=== PATIENT | female | born 1970 | race Caucasian/White ===

== ENCOUNTER 2016-11-11 20:28 | Emergency (ER) | payer BC ==
[2016-11-11 20:45] VITALS: BP 99/52; PULSE 90; TEMP 98.5; BMI 21.4
--- NOTE | 2016-11-11 22:01 | PDOC ---
History of Present Illness - General Chief Complaint: Shortness of Breath Stated Complaint: SHORTNESS OF BREATH Time Seen by Provider: 11/11/16 21:44 History Source: Patient Exam Limitations: No Limitations - History of Present Illness Initial Comments: 11/15/16 14:17 46 yr female with cough and congestion. No fever no chills. no chest pain. Past History - Past Medical History Allergies/Adverse Reactions: Allergies Allergy/AdvReac Type Severity Reaction Status Date / Time Penicillins Allergy Intermediate Hives Verified 11/11/16 20:43 Home Medications: Ambulatory Orders Albuterol 0.083% Nebulizer Catarina [Ventolin 0.083% Nebulizer Soln -] 1 neb NEB Q4H #30 vial 11/11/16 Azithromycin [Zithromax 250mg Tablets -] 250 mg PO DAILY #3 tablet 11/11/16 GI Disorders: Yes (spastic collitis) Suicide Attempt (Hx): No - Surgical History Cholecystectomy: Yes Orthopedic Surgery: Yes (ARTHROSCOPY LEFT) - Psycho/Social/Smoking Cessation Hx Anxiety: No Suicidal Ideation: No Smoking History: Former smoker Have you smoked in the past 12 months: Yes Number of Cigarettes Smoked Daily: 20 Information on smoking cessation initiated: No 'Breaking Loose' booklet given: 07/16/14 Hx Alcohol Use: Yes (RARE) Drug/Substance Use Hx: No Substance Use Type: Alcohol Review of Systems - Review of Systems Able to Perform ROS?: Yes Is the patient limited Libyan proficient: No Constitutional: No: Symptoms Reported HEENTM: No: Symptoms Reported Respiratory: Yes: Cough *Physical Exam - Vital Signs Last Vital Signs Temp Pulse Resp BP Pulse Ox 98.5 F 90 18 99/52 100 11/11/16 20:44 11/11/16 20:44 11/11/16 20:44 11/11/16 20:44 11/11/16 20:44 - Physical Exam General Appearance: Yes: Nourished, Appropriately Dressed HEENT: positive: EOMI, BARTOLO, Normal ENT Inspection, TMs Normal, Pharynx Normal Neck: positive: Supple. negative: Tender, Lymphadenopathy (R), Lymphadenopathy (L) Respiratory/Chest: positive: Lungs Clear, Normal Breath Sounds, Rhonchi. negative: Chest Tender Cardiovascular: positive: Regular Rhythm, Regular Rate Gastrointestinal/Abdominal: positive: Normal Bowel Sounds, Soft Musculoskeletal: positive: Normal Inspection Extremity: positive: Normal Capillary Refill, Normal Inspection, Normal Range of Motion Integumentary: positive: Normal Color, Dry, Warm Neurologic: positive: Fully Oriented, Normal Mood/Affect, Normal Response, Motor Strength 02/25 ED Treatment Course - ADDITIONAL ORDERS Additional order review: Laboratory Results 11/11/16 21:07 Urine HCG, Qual Negative Medical Decision Making - Medical Decision Making 11/15/16 14:19 cc: cough afebrile no chest pain scattered rhonchi pt requesting Zpack states that is what helps her bronchitis will give zpack for bronchitis pt satisfied with care all questions asked and answered before discharge. 11/15/16 14:20 *DC/Admit/Observation/Transfer Diagnosis at time of Disposition: Bronchitis - Discharge Dispostion Disposition: HOME Condition at time of disposition: Good - Prescriptions Prescriptions: Albuterol 0.083% Nebulizer Catarina [Ventolin 0.083% Nebulizer Soln -] 1 neb NEB Q4H #30 vial Azithromycin [Zithromax 250mg Tablets -] 250 mg PO DAILY #3 tablet - Patient Instructions Additional Instructions: follow with your doctor drink pleanty of water return if any worsening symptoms next dose of azithromcyin tomorrow
== END 2016-11-11 22:03 | disposition home or self-care (01) ==
LOC: JERFT 20:28
DX: J40 Bronchitis, not specified as acute or chronic (principal)
CPT/HCPCS: 84703; 99281-25

== ENCOUNTER 2017-05-31 23:18 | Emergency (ER) | payer BC ==
--- NOTE | 2017-05-31 23:22 | PDOC ---
History of Present Illness - General Chief Complaint: Injury Stated Complaint: INJURY TO RIGHT ANKLE Time Seen by Provider: 05/31/17 23:21 - History of Present Illness Initial Comments: 05/31/17 23:24 This 47-year-old woman without active medical problems presents with injury to her right ankle: While she was playing softball this evening, line drive hit her right ankle (lateral malleolus area). Patient did not fall or turn the ankle after injury. Although she had significant pain, she continued to play the game. She is able to ambulate with pain afterwards. No previous history of fracture of the right lower leg. No other injury sustained. Past medical history Chronic bronchitis Spastic colitis s/p cholecystectomy Medications as noted below ALLERGY: Penicillin Past History - Past Medical History Allergies/Adverse Reactions: Allergies Allergy/AdvReac Type Severity Reaction Status Date / Time Penicillins Allergy Intermediate Hives Verified 05/31/17 23:19 Home Medications: Ambulatory Orders L.acidoph,Paracasei, B.lactis [Probiotic] 1 each PO DAILY 05/31/17 NK [No Known Home Medication] 05/31/17 GI Disorders: Yes (spastic collitis) Suicide Attempt (Hx): No - Surgical History Cholecystectomy: Yes Orthopedic Surgery: Yes (ARTHROSCOPY LEFT) - Psycho/Social/Smoking Cessation Hx Anxiety: No Suicidal Ideation: No Smoking History: Former smoker Have you smoked in the past 12 months: Yes Number of Cigarettes Smoked Daily: 20 'Breaking Loose' booklet given: 07/16/14 Hx Alcohol Use: Yes (RARE) Drug/Substance Use Hx: No Substance Use Type: Alcohol Review of Systems - Review of Systems Able to Perform ROS?: Yes Comments:: 12 point review of systems is negative except for what is noted in the history of present illness *Physical Exam - Physical Exam Comments: GENERAL: HEAD: Normal with no signs of trauma. EYES: PERRLA, EOMI, sclera anicteric, conjunctiva clear. ENT: Ears normal, nares patent, oropharynx clear without exudates. Dry mucous membranes. NECK: Normal range of motion, supple without lymphadenopathy, JVD, or masses. LUNGS: Breath sounds equal, clear to auscultation bilaterally. No wheezes, and no crackles. HEART:Regular rate and rhythm, normal S1 and S2 without murmur, rub or gallop. ABDOMEN:.normal bowel sounds No guarding,tenderness or rebound.No masses No distention. EXTREMITIES: Right lower extremitymoderate edema/mild tenderness/no deformity or ecchymosis lateral malleolus ankle No foot/lower leg/knee tenderness or edema Remainder of the extremity exam is normal NEUROLOGICAL: Cranial nerves II through XII grossly intact. Normal speech. No focal neurological deficits. MUSCULOSKELETAL: Back non-tender to palpation, no CVA tenderness SKIN: Warm, Dry, normal turgor, no rashes or lesions noted. Progress Note - Progress Note Progress Note: Patient is adamant that she is not currently sexually active and therefore cannot be . PGU deferred Right ankle x-ray performed: No clear evidence of fracture or dislocation on my interpretation. Lance wrap applied to right ankle. Patient will be discharged with instructions to ice and elevate the ankle as much as possible for next 48 hours. 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 If she continues to have pain/swelling in the ankle, she should follow-up with Dr. Walls who is her orthopedist. *DC/Admit/Observation/Transfer Diagnosis at time of Disposition: Ankle contusion Qualifiers: Encounter type: initial encounter Laterality: right Qualified Code(s): S90.01XA - Contusion of right ankle, initial encounter - Discharge Dispostion Disposition: HOME Condition at time of disposition: Stable - Referrals Referrals: Shahid Walls MD [Staff Physician] - 1 week - Patient Instructions Printed Discharge Instructions: Smoking Cessation, DI for Contusion Additional Instructions: Elevate/ice to ankle as much as possible for the next 48 hours Lance wrap during day for the next week Ibuprofen/naproxen/acetaminophen as needed for pain Follow-up with Dr. Walls if you have continued pain/swelling for more than 5-7 days No work tomorrow night or night - Post Discharge Activity Work/School Note: Back to Work
[2017-05-31 23:28] VITALS: BP 133/100; PULSE 70; TEMP 98.9; BMI 20.6
== END 2017-06-01 00:02 | disposition home or self-care (01) ==
LOC: FER 23:18
DX: S90.01XA Contusion of right ankle, initial encounter (principal); W21.03XA Struck by baseball, initial encounter; Y93.64 Activity, baseball; Y92.320 Baseball field as the place of occurrence of the external cause; Z87.891 Personal history of nicotine dependence; K58.9 Irritable bowel syndrome, unspecified
CPT/HCPCS: 73610-TC-RT; 99281-25

== ENCOUNTER 2018-07-30 10:05 | Emergency (ER) | payer BC ==
[2018-07-30 10:18] VITALS: BP 112/81; PULSE 87; TEMP 98.5; BMI 20.6
[2018-07-30] MEDS ORDERED: CLINDAMYCIN HCL 300 MG CAPSULE PO ONE (10:27)
--- NOTE | 2018-07-30 10:27 | PDOC ---
History of Present Illness - General Chief Complaint: Rash Stated Complaint: RASH Time Seen by Provider: 07/30/18 10:06 History Source: Patient Exam Limitations: No Limitations - History of Present Illness Initial Comments: 48 yo F presents with facial lesion. She states that she is currently at the early stages of menopause and has been having acne as a result. She states that it tends to mostly affect her chin. She recently developed multiple lesions so she decided to pop them. Subsequently they became swollen, then she squeezed again and pus came out. They are no longer draining and have started to scab over, but in the last few days she has developed swelling of her chin and pain at the location. No mouth pain, but moving her chin is painful. Denies fever. Past History - Past Medical History Allergies/Adverse Reactions: Allergies Allergy/AdvReac Type Severity Reaction Status Date / Time Penicillins Allergy Intermediate Hives Verified 05/31/17 23:19 Home Medications: Ambulatory Orders L.acidoph,Paracasei, B.lactis [Probiotic] 1 each PO DAILY 05/31/17 Clindamycin [Cleocin -] 300 mg PO Q6HPO #28 capsule 07/30/18 COPD: No GI Disorders: Yes (spastic collitis) - Surgical History Cholecystectomy: Yes Orthopedic Surgery: Yes (ARTHROSCOPY LEFT) - Suicide/Smoking/Psychosocial Hx Smoking History: Former smoker Have you smoked in the past 12 months: Yes Number of Cigarettes Smoked Daily: 20 Information on smoking cessation initiated: Yes 'Breaking Loose' booklet given: 07/30/18 Hx Alcohol Use: No Drug/Substance Use Hx: No Substance Use Type: Alcohol Review of Systems - Review of Systems Able to Perform ROS?: Yes Comments:: GENERAL/CONSTITUTIONAL: No fever or chills. No weakness. HEAD, EYES, EARS, NOSE AND THROAT: No change in vision. No ear pain or discharge. No sore throat. SKIN: +Lesions to the chin. NEUROLOGIC: No headache, vertigo, loss of consciousness, or change in strength/ sensation. ENDOCRINE: No increased thirst. No abnormal weight change. HEMATOLOGIC/LYMPHATIC: No anemia, easy bleeding, or history of blood clots. ALLERGIC/IMMUNOLOGIC: No hives or skin allergy. *Physical Exam - Vital Signs Last Vital Signs Temp Pulse Resp BP Pulse Ox 98.5 F 87 20 112/81 100 07/30/18 10:06 07/30/18 10:06 07/30/18 10:06 07/30/18 10:06 07/30/18 10:06 - Physical Exam Comments: GENERAL: Awake, alert, and fully oriented, in no acute distress HEAD: No signs of trauma EYES: PERRLA, EOMI, sclera anicteric, conjunctiva clear ENT: Auricles normal inspection, hearing grossly normal, nares patent, oropharynx clear without exudates. Moist mucosa NECK: Normal ROM, supple, no lymphadenopathy, JVD, or masses EXTREMITIES: Normal range of motion, no edema. No clubbing or cyanosis. No cords, erythema, or tenderness NEUROLOGICAL: Cranial nerves II through XII grossly intact. Normal speech, normal gait SKIN: Warm, Dry, normal turgor. +Partially healed lesion to the chin, scabbed over, no fluctuance, no drainage. Mild induration to the surrounding area with mild erythema. +Tenderness to the indurated area. Medical Decision Making - Medical Decision Making Will treat with clinda for MRSA coverage. Counseled patient not to attempt to open skin lesions herself in the future, as it can lead to serious infections. She has derm f/u tomorrow morning with Dr. Pires. *DC/Admit/Observation/Transfer Diagnosis at time of Disposition: Cellulitis Qualifiers: Site of cellulitis: face Qualified Code(s): L03.211 - Cellulitis of face - Discharge Dispostion Disposition: HOME Condition at time of disposition: Stable Decision to Admit order: No - Prescriptions Prescriptions: Clindamycin [Cleocin -] 300 mg PO Q6HPO #28 capsule - Referrals - Patient Instructions Printed Discharge Instructions: DI for Cellulitis -- Adult - Post Discharge Activity
[2018-07-30] MEDS ORDERED: CLINDAMYCIN HCL 150 MG CAPSULE (FP) ONE (10:32)
== END 2018-07-30 10:36 | disposition home or self-care (01) ==
LOC: FER 10:05
DX: L03.211 Cellulitis of face (principal); Z87.891 Personal history of nicotine dependence
CPT/HCPCS: 99281-25

== ENCOUNTER 2019-03-22 08:49 | Emergency (ER) | payer OTHER, BC | END 2019-03-22 09:43 | disposition home or self-care (01) | LOC: FER 08:49 ==

== ENCOUNTER 2019-04-16 08:34 | Emergency (ER) | payer BC, OTHER ==
[2019-04-16] MEDS ORDERED: LIDOCAINE HCL 1%, 10 MG/ML (20ML VIAL) ONE (08:40)
[2019-04-16] MEDS ORDERED: LIDOCAINE HCL 1%, 10 MG/ML (50 mL VIAL) SQ ONE (08:41)
[2019-04-16 08:44] VITALS: BP 109/79; PULSE 79; TEMP 98.2; BMI 20.9
--- NOTE | 2019-04-16 08:50 | PDOC ---
History of Present Illness - General Chief Complaint: Injury Stated Complaint: black and blue on nail at right middle finger Time Seen by Provider: 04/16/19 08:40 History Source: Patient Exam Limitations: No Limitations - History of Present Illness Initial Comments: 04/16/19 08:49 48 year old female c/ smoking hx, right hand dominant presents with 3rd right finger injury. Pt was playing softball yesterday. She felt the softball hit the dorsal surface of distal right 3rd digit. Sustained bruising under fingernail and 3rd digit. No numbness, weakness, but felt throbbing. Denies bony tenderness. Pt noted increasing ecchymosis under the right 3rd nail. Pt spoke to her employer who advised pt to come to the ER. Past History - Past Medical History Allergies/Adverse Reactions: Allergies Allergy/AdvReac Type Severity Reaction Status Date / Time Penicillins Allergy Intermediate Hives Verified 04/16/19 08:36 amoxicillin AdvReac Verified 04/16/19 08:36 Home Medications: Ambulatory Orders NK [No Known Home Medication] 03/22/19 COPD: No GI Disorders: Yes (spastic collitis) - Surgical History Cholecystectomy: Yes Orthopedic Surgery: Yes (ARTHROSCOPY LEFT) - Suicide/Smoking/Psychosocial Hx Smoking History: Current every day smoker Have you smoked in the past 12 months: Yes Number of Cigarettes Smoked Daily: 20 Information on smoking cessation initiated: Yes 'Breaking Loose' booklet given: 03/22/19 Hx Alcohol Use: Yes (OCASIONAL) Drug/Substance Use Hx: No Substance Use Type: Alcohol Review of Systems - Review of Systems Able to Perform ROS?: Yes Comments:: 04/16/19 08:59 GENERAL/CONSTITUTIONAL: [No fever or chills. No weakness. No weight change.] HEAD, EYES, EARS, NOSE AND THROAT: [No change in vision. No ear pain or discharge. No sore throat.] CARDIOVASCULAR: [No chest pain or shortness of breath.] RESPIRATORY: [No cough, wheezing, or hemoptysis.] GASTROINTESTINAL: [No nausea, vomiting, diarrhea or constipation. No rectal bleeding.] GENITOURINARY: [No dysuria, frequency, or change in urination.] MUSCULOSKELETAL: [No joint or muscle swelling or pain. No neck or back pain.] + right 3rd finger pain and subungal hematoma SKIN AND BREASTS: [No rash or easy bruising.] NEUROLOGIC: [No headache, vertigo, loss of consciousness, or loss of sensation.] PSYCHIATRIC: [No depression or anxiety.] ENDOCRINE: [No increased thirst. No abnormal weight change.] HEMATOLOGIC/LYMPHATIC: [No anemia, easy bleeding, or history of blood clots.] ALLERGIC/IMMUNOLOGIC: [No hives or skin allergy. No latex allergy.] *Physical Exam - Vital Signs Last Vital Signs Temp Pulse Resp BP Pulse Ox 98.2 F 79 18 109/79 100 04/16/19 08:35 04/16/19 08:35 04/16/19 08:35 04/16/19 08:35 04/16/19 08:35 - Physical Exam Comments: 04/16/19 09:00 GENERAL: Awake, alert, and fully oriented, in no acute distress HEAD: No signs of trauma EYES: EOMI, sclera anicteric, conjunctiva clear ENT: Auricles normal inspection, hearing grossly normal, nares patent, Moist mucosa NECK: Normal ROM, supple, EXTREMITIES: Normal range of motion, no edema. No clubbing or cyanosis. No cords, erythema, or tenderness RUE: 2+ radial pulse. Sensation and strength intact median/radian/ulnar nerve throughout. < 2 sec cap refill. 3rd right digit. No bony tenderness. +subungal hematoma appreciated. Ecchymosis of the 3rd digit. NEUROLOGICAL: Cranial nerves II through XII grossly intact. Normal speech, normal gait SKIN: Warm, Dry, normal turgor, no rashes or lesions noted. Medical Decision Making - Medical Decision Making 04/16/19 09:05 Vital Signs Temp Pulse Resp BP Pulse Ox 98.2 F 79 18 109/79 100 04/16/19 08:35 04/16/19 08:35 04/16/19 08:35 04/16/19 08:35 04/16/19 08:35 Low suspicion for fracture. Pt noted with subungal hematoma. Pt verbally consents for trephination. 4 cc 1% lidocaine without epinephrine injected with ring block. Trephination performed successfully. Pt reports relief. NSAIDS, ice, and hand elevation. Return if symptoms of infection. Follow up with PMD. I discussed the physical exam findings, ancillary test results and final diagnoses with the patient. I answered all of the patient's questions. The patient was satisfied with the care received and felt comfortable with the discharge plan and treatment plan. The patient will call their primary care physician within 24 hours to arrange follow-up and will return to the Emergency Department with any new, persistant or worsening symptoms. *DC/Admit/Observation/Transfer Diagnosis at time of Disposition: Subungual hematoma - Discharge Dispostion Disposition: HOME Condition at time of disposition: Stable Decision to Admit order: No - Referrals - Patient Instructions Printed Discharge Instructions: DI for Subungual Hematoma Additional Instructions: You have received a trephination in the ER for your finger. This will relieve the pressure under your finger. However, your finger will continue to throb and have discomfort for several more days. The swelling will improve with pressure and ice. Elevate the hand as much as you can. 600 mg ibuprofen every 6 hours as needed for pain. Please make sure you keep your hand clean. Please follow up with your doctor. - Post Discharge Activity
== END 2019-04-16 09:02 | disposition home or self-care (01) ==
LOC: FER 08:34
PROC: 0H9QXZZ Drainage of Finger Nail, External Approach (ICD-10-PCS; principal; 2019-04-16)
DX: S60.131A Contusion of right middle finger with damage to nail, initial encounter (principal); X58.XXXA Exposure to other specified factors, initial encounter; Y93.9 Activity, unspecified; Y92.89 Other specified places as the place of occurrence of the external cause; Y93.89 Activity, other specified; F17.210 Nicotine dependence, cigarettes, uncomplicated
CPT/HCPCS: 99281-25

== ENCOUNTER 2019-04-25 22:56 | Emergency (ER) | payer BC ==
[2019-04-25 23:03] VITALS: BP 118/68; PULSE 73; TEMP 97.9; BMI 20.9
[2019-04-25] MEDS ORDERED: IBUPROFEN 400 MG TABLET (FP) PO ONE ×2 (23:19→23:27)
--- NOTE | 2019-04-25 23:30 | PDOC ---
History of Present Illness - General Chief Complaint: Injury Stated Complaint: INJURY Time Seen by Provider: 04/25/19 23:09 History Source: Patient Exam Limitations: Clinical Condition - History of Present Illness Initial Comments: 04/26/19 00:06 Patient with no significant Pmhx present with complains of persistent swelling to right middle finger around nailbed s/p injury during softball 2 weeks ago to tip of right middle finger. Patient was seen in [facility] over a week ago for symptoms and had needle aspiration done for blood around nailbed but she kept playing softball and also report banging finger multiple times. Patient report going to urgent care 5 days ago due to persistent swelling and was placed on clindamycin TID x7 days for possible infection which she is still taking. Patient report she takes OTC motrin sporadically for pain. report no pain now but came in today because finger is still swollen Timing/Duration: other (2 weeks) Past History - Past Medical History Allergies/Adverse Reactions: Allergies Allergy/AdvReac Type Severity Reaction Status Date / Time Penicillins Allergy Intermediate Hives Verified 04/25/19 23:03 amoxicillin AdvReac Verified 04/25/19 23:03 Home Medications: Ambulatory Orders Ibuprofen 800 mg PO Q8H PRN #20 tablet 04/25/19 COPD: No GI Disorders: Yes (spastic collitis) - Surgical History Cholecystectomy: Yes Orthopedic Surgery: Yes (ARTHROSCOPY LEFT) - Suicide/Smoking/Psychosocial Hx Smoking History: Current every day smoker Have you smoked in the past 12 months: Yes Number of Cigarettes Smoked Daily: 10 Information on smoking cessation initiated: No 'Breaking Loose' booklet given: 03/22/19 Hx Alcohol Use: No Drug/Substance Use Hx: No Substance Use Type: Alcohol Review of Systems - Review of Systems Able to Perform ROS?: Yes Is the patient limited Nepali proficient: No Constitutional: No: Malaise, Weakness HEENTM: No: Symptoms Reported Respiratory: No: Symptoms reported Cardiac (ROS): No: Symptoms Reported ABD/GI: No: Symptoms Reported Musculoskeletal: Yes: Symptoms Reported, See HPI, Joint Swelling (distal right middle fingernail). No: Muscle Pain Neurological: No: Numbness, Paresthesia, Tingling All Other Systems: Reviewed and Negative *Physical Exam - Vital Signs Last Vital Signs Temp Pulse Resp BP Pulse Ox 97.9 F 73 18 118/68 100 04/25/19 23:00 04/25/19 23:00 04/25/19 23:00 04/25/19 23:00 04/25/19 23:00 - Physical Exam General Appearance: Yes: Nourished, Appropriately Dressed. No: Apparent Distress HEENT: positive: Normal ENT Inspection Neck: positive: Supple Respiratory/Chest: positive: Normal Breath Sounds. negative: Respiratory Distress, Accessory Muscle Use Musculoskeletal: positive: Normal Inspection Extremity: positive: Normal Capillary Refill, Normal Range of Motion, Swelling ( distal phalange of right middle finger). negative: Cyanosis Integumentary: positive: Normal Color. negative: Erythema Neurologic: positive: Fully Oriented, Alert, Normal Mood/Affect, Normal Response , Motor Strength 5/5 Procedures - Splinting Splint Location: Right: Finger (right middle finger) Pre-Proc Neuro Vasc Exam: normal Pre-Made Type: metal Hand-Made Type: pre-mary finger splint Splint Type: Yes: Finger Lance Bandage: no Sling: No Complications: No Post splint xray: No Good repositioning: Yes Medical Decision Making - Medical Decision Making 04/26/19 00:13 Patient with no significant Pmhx present with complains of persistent swelling to right middle finger around nailbed s/p injury during softball 2 weeks ago to tip of right middle finger. Patient was seen in [facility] over a week ago for symptoms and had needle aspiration done for blood around nailbed but she kept playing softball and also report banging finger multiple times. Patient report going to urgent care 5 days ago due to persistent swelling and was placed on clindamycin TID x7 days for possible infection which she is still taking. Patient report she takes OTC motrin sporadically for pain. report no pain now but came in today because finger is still swollen Exam significant for mild swelling to whole distal phalange of right middle finger. no erythema to skin of finger. no evidence of paronychia on exam. Patient likely have persistent swelling due to keep re-injurying finger and playing softball which is aggrevating finger. Patient will be placed on finger splint to protect finger with motrin prn for pain and orthopedics hand f/u *DC/Admit/Observation/Transfer Diagnosis at time of Disposition: Finger sprain Qualifiers: Encounter type: initial encounter Finger: middle finger Sprain of finger site: unspecified site Laterality: right Qualified Code(s): S63.612A - Unspecified sprain of right middle finger, initial encounter - Discharge Dispostion Disposition: HOME Condition at time of disposition: Stable Decision to Admit order: No - Prescriptions Prescriptions: Ibuprofen 800 mg PO Q8H PRN #20 tablet PRN Reason: pain - Referrals Referrals: Sylvester Saab MD [Staff Physician] - - Patient Instructions Printed Discharge Instructions: Contusion Additional Instructions: Take medication as prescribed for pain. Continue with prescribed clindamycin. Apply hot compress as needed for swelling. Follow-up with referred hand specialist in few days for reassessment - Post Discharge Activity
== END 2019-04-25 23:34 | disposition home or self-care (01) ==
LOC: JER 22:56
DX: S63.612A Unspecified sprain of right middle finger, initial encounter (principal); X58.XXXA Exposure to other specified factors, initial encounter; Y93.64 Activity, baseball; Y92.9 Unspecified place or not applicable
CPT/HCPCS: 99282-25

== ENCOUNTER 2023-08-06 21:19 | Emergency (ER) | payer BC ==
[2023-08-06 21:37] VITALS: BP 127/63; PULSE 78; RESP 16; TEMP 98.5; BMI 23.2
[2023-08-06] MEDS ORDERED: KETOROLAC TROMETHAMINE 60 MG/2 ML VIAL IM ONE (21:42)
[2023-08-06] MEDS ORDERED: predniSONE 20 MG TABLET (UD) PO ONE (21:42)
[2023-08-06] MEDS ORDERED: CYCLOBENZAPRINE HCL 10 MG TABLET (FP) PO ONE (21:43)
[2023-08-06] MEDS ORDERED: predniSONE 20 MG TABLET (UD) ONE (21:45)
[2023-08-06] MEDS ORDERED: KETOROLAC TROMETHAMINE 60 MG/2 ML VIAL ONE (21:45)
[2023-08-06] MEDS ORDERED: CYCLOBENZAPRINE HCL 5 MG TABLET ONE (21:45)
== END 2023-08-06 22:29 | disposition home or self-care (01) ==
LOC: FER 21:19
PROC: 3E0233Z Introduction of Anti-inflammatory into Muscle, Percutaneous Approach (ICD-10-PCS; principal; 2023-08-06)
DX: M54.50 Low back pain, unspecified (principal)
CPT/HCPCS: 99284-25

== ENCOUNTER 2024-10-11 04:23 | Day surgery (SDC) | payer BC ==
[2024-10-03 11:52] VITALS: BMI 23.7
[2024-10-11] MEDS ORDERED: MIDAZOLAM HCL 2 MG/2 ML SINGLE DOSE VIAL ONE (08:29)
[2024-10-11 09:15] VITALS: TEMP 98
[2024-10-11 09:43] VITALS: RESP 18
[2024-10-11 09:44] VITALS: BP 105/56; PULSE 59
== END 2024-10-11 09:40 | disposition home or self-care (01) ==
LOC: JASU-ENDO 04:23
PROVIDERS: ATTEND Internal Medicine Gastroenterology
PROC: 0DBL8ZX Excision of Transverse Colon, Via Natural or Artificial Opening Endoscopic, Diagnostic (ICD-10-PCS; 2024-10-11)
PROC: 0DBN8ZX Excision of Sigmoid Colon, Via Natural or Artificial Opening Endoscopic, Diagnostic (ICD-10-PCS; principal; 2024-10-11 08:30)
DX: Z12.11 Encounter for screening for malignant neoplasm of colon (principal); D12.3 Benign neoplasm of transverse colon; K63.5 Polyp of colon; K64.8 Other hemorrhoids
CPT/HCPCS: 88305-TC